=== PATIENT | female | born 1955 | race Hispanic/Latino ===

== ENCOUNTER 2021-02-14 14:28 | Outpatient (CLI) | payer OTHER, SELFPAY ==
--- NOTE | 2021-02-14 14:32 | ECG_ITS ---
Measurements Intervals [place] Rate: 69 P: 52 IL: 117 QRS: 81 QRSD: 82 T: 70 QT: 369 QTc: 396 Interpretive Statements SINUS RHYTHM WITH SHORT [place] INTERVAL DELAYED PRECORDIAL R/S TRANSITION BORDERLINE ECG Electronically Signed On 02-14-2021 15:27:43 REPRODUCTION ORDER PROCESSOR by Demar Gillis D.O.
== END 2021-02-14 14:29 | disposition home or self-care (01) ==
LOC: CHSCARD 14:32
PROVIDERS: PCP Nurse Practitioner; Visit Provider Internal Medicine Cardiovascular Disease
DX: I20.1 Angina pectoris with documented spasm (principal)
CPT/HCPCS: 93005

== ENCOUNTER 2024-10-23 13:40 | Outpatient (CLI) | payer OTHER, SELFPAY ==
--- OUTSIDE RECORDS SUMMARY | 2024-10-23 13:43 | XMS_ITS | Encounter Summary ---
Author Organization [facility] Address [address] [place] [address] Care Team Providers Care Insole And Outsole Splitter Name Role Phone Clive Stubbs MD Primary Care Provider [phone] Niall Garibay MD Unavailable Unavailab Kadeem Rogers MD Unavailable [phone] [facility] Primary Care Provider [phone] Encounter Details Date Type Department Care Team (Late st Contact Info) Description 12/16/2015 [facility] [address] [place] [address] Niall Garibay MD Social History Tobacco Use Types Packs/Day Years Used Date Smoking Tobacco: Former Alcohol Use Standard Drinks/Week Comments Yes 0 (1 standard drink = 0.6 oz pur e alcohol) Comments Unknown Sex and Gender Information Value Date Recorded Sex Assigned at Not on file Legal Sex Female 7:24 PM CDT Gender Identity Not on file Sexual Orientation Not on file documented as of this encounter Plan of Treatment Not on file documented as of this encounter Visit Diagnoses Not on filedocumented in this encounter Care Teams Insole And Outsole Splitter Relationship Specialty Start Date End Date Clive Stubbs MD [address] [place] [address] PCP - General INTERNAL MEDICINE 11/01/15 02/15/21 Chelo Suarez FNP-BC [address] [place] [address] PCP - General NURSE PRACTITIONER 02/16/21 Niall Garibay MD [address] [place] [address] CARDIOVASCULAR DISEASE 11/01/15 9 Kadeem Vazquez MD [address] [place] [address] [place] [employer] Servicer Apprentice CARDIOVASCULAR DISEASE 04/15/18 documented as of this encounter
--- OUTSIDE RECORDS SUMMARY | 2024-10-23 13:43 | XMS_ITS | Encounter Summary ---
Author Organization [facility] Address [address] [place] [address] Care Team Providers Care Natural Gas Plant Technician Name Role Phone Clive Stubbs MD Primary Care Provider [phone] Kademe Vazquez MD Unavailable [phone] [facility] Primary Care Provider [phone] Encounter Details Date Type Department Care Team (Late st Contact Info) Description 06/05/2018 Abstract [facility] [address] [place] [id number] Abstract, Doc [facility] Social History Tobacco Use Types Packs/Day Years Used Date Smoking Tobacco: Former Smokeless Tobacco: Never Alcohol Use Standard Drinks/Week Comments Yes 0 [...] on filedocumented in this encounter Care Teams Natural Gas Plant Technician Relationship Specialty Start Date End Date Clive Stubbs MD [address] [place] [address] PCP - General INTERNAL MEDICINE 11/01/15 02/15/21 Chelo Suarez FNP-BC [address] [place] [address] PCP - General NURSE PRACTITIONER 02/16/21 Kadeem Vazquez MD [address] [place] [address] [place] Licensed Practical CARDIOVASCULAR DISEASE 04/15/18 documented as of this encounter
--- OUTSIDE RECORDS SUMMARY | 2024-10-23 13:43 | XMS_ITS | Clinical Summary ---
Author Organization [facility] Address [address] [place] [address] Care Team Providers Care Formal Waiter/Waitress Name Role Phone Kadeem Vazquez MD Unavailable [phone] Chelo Suarez [facility] Primary Care Provider [phone] Allergies No known active allergies Medications * This document contains information received from the source organization and may not represent a complete record from that organization. aspirin 81 MG tablet Take 1 tablet by mouth daily. 1 Active busPIRone 10 MG tablet Take 1 tablet by mouth 2 (two) times daily. 4 Active isosorbide mononitrate ER 30 MG 24 hr tablet Take 1 tablet by mouth daily. 2 Active nitroGLYCERIN 0.4 MG SL tablet nitroglycerin tablet, sublingual 0.4 mg; take 1 tablet under tongue, for chest pain as directed; 25; 0; -Sep-2012; Active; Call PCP for refills 3 Active clopidogrel 75 MG tablet Take 75 mg by mouth daily. Active atorvastatin 40 MG tablet Take 1 tablet (40 mg total) by mouth daily. 90 tablet 3 6 Active sertraline 50 MG tablet 9 Active Active Problems Problem Noted Date Diagnosed Date CAD (coronary artery disease) Overview (01/11/2016): Mild nonobstructive coronary artery disease involving the LAD, currently chest pain free. Hypertension Hyperlipidemia Overview (01/11/2016): Hyperlipidemia, unknown status. Vasospasm Overview (01/11/2016): History of coronary vasospasms. Family History Medical History Relation Comments Coronary artery disease Other FAMILY H ISTORY UNKNOWN Relation Status Comments Other Social History Tobacco Use Types Packs/Day Years Used Date Smoking Tobacco: Former Smokeless Tobacco: Never Alcohol Use Standard Drinks/Week Comments Yes 0 (1 standard drink = 0.6 oz pur e alcohol) Comments Unknown Sex and Gender Information Value Date Recorded Sex Assigned at Not on file Legal Sex Female 7:24 PM CDT Gender Identity Not on file Sexual Orientation Not on file Last Filed Vital Signs Vital Sign Reading Time Taken Comments Blood Pressure 118/68 06/07/2018 10:37 AM CDT Pulse 76 06/07/2018 10:37 AM CDT Temperature - - Respiratory Rate 18 06/07/2018 10:37 AM CDT Oxygen Saturation 98% 06/07/2018 10:37 AM CDT Inhaled Oxygen Concentration - - Weight 59 kg (130 lb) 06/07/2018 10:37 AM CDT Height 157.5 cm (5' 2) 06/07/2018 10:37 AM CDT Body Mass Index 23.78 06/07/2018 10:37 AM CDT Plan of Treatment Health Maintenance Due Date Last Done Comments ASCVD Statin 1955 Colorectal Cancer Screening Colonoscopy (10 Years) 1955 Hepatitis C 05/29/1973 DTaP, Tdap and Td Vaccines ( 1 - Tdap) 05/29/1974 Pneumococcal Vaccine: 50+ Ye ars (1 of 2 - PCV) 05/29/1974 Mammogram Screening 1995 Zoster Vaccines (1 of 2) 05/29/2005 ASCVD LDL 01/07/2014 01/07/2013 RSV Immunization or 60+ Years (1 - Risk 60-74 years 1-dose series) 2015 Dexa Scan (General) 05/29/2020 COVID-19 Vaccine ( - 2023-2 5 season) 2023 Meningococcal B Vaccine Aged Out No l onger eligible based on patient's age to complete this topic Meningococcal Vaccine Aged Out No tonya maegan eligible based on patient's age to complete this topic RSV Immunizations Under 20 Months Aged Out No longer eligible based on patient's age to complete this topic Procedures Procedure Name Priority Date/Time Associated Diagnosis Comments LIPID PANEL Routine 01/07/2013 12:00 AM CDT from Last 3 Months or Most Recently Relevant to Health Maintenance Results * LIPID PANEL (01/07/2013 12:00 AM CDT) TRIGLYCERIDES 65 0 - 150 mg/dl MEDINFORMATIX TO EPIC CONVERSION CHOLESTEROL 148 0 - 200 mg/dl MEDINFORMATIX TO EPIC CONVERSION HDL 76 40 - 59 mg/dl MEDINFORMATIX TO EPIC CONVERSION LDL CONVERSION 59 0 - 100 mg/dl MEDINFORMATIX TO EPIC CONVERSION CHOL/HDL RATIO 1.9 <4.0 (Calc) MEDINFORMATIX TO EPIC CONVERSION LDL/HDL 0.8 <3.0 Calc MEDINFORMA TIX TO EPIC CONVERSION 01/07/2013 01/07/2013 Narrative MEDINFORMATIX TO EPIC CONVERSION - 04/16/2013 11:12 AM HAND II CUTTER Reviewed by TABITHA Apr 16 2013 11:13:02:000AM us Generic Conversion Md [facility] Final R esult MEDINFORMATIX TO EPIC CONVERSION from Last 3 Months or Most Recently Relevant to Health Maintenance Insurance Care Teams Formal Waiter/Waitress Relationship Specialty Start Date End Date Chelo Suarez [facility] [address] [place] [address] PCP - General NURSE PRACTITIONER 02/16/21 Kadeem Vazquez MD [address] [place] [address] [place] Telex Operator CARDIOVASCULAR DISEASE 04/15/18
[2024-10-23 14:59] LABS: Alanine Aminotransferase 26 U/L (6-35); Albumin Level 4.9 g/dL (3.5-5.1); Alkaline Phosphatase 75 U/L (38-126); Anion Gap 5 mmol/L (4-12); Aspartate Amino Transferase 40 U/L (14-36); Bilirubin,Total 0.5 mg/dL (0.2-1.3); Blood Urea Nitrogen 15 mg/dL (7-17); Calcium 10.1 mg/dL (8.4-10.2); Carbon Dioxide 32 mmol/L (22-30); Chloride 104 mmol/L (98-107); Cholesterol 187 mg/dL (0-200); Estimated Glomerular Filt Rate > 60; Glucose 85 mg/dL (65-110); HDL Direct 87 mg/dL; Osmolality Calculated 291 mOsm/kg (285-295); Potassium 4.3 mmol/L (3.4-5.0); Sodium 141 mmol/L (137-145); Total Protein 7.1 g/dL (6.3-8.2); Triglycerides 195 mg/dL (<150)
== END 2024-10-23 13:41 | disposition home or self-care (01) ==
PROVIDERS: PCP Physician Assistant; Visit Provider Internal Medicine Cardiovascular Disease
DX: E78.5 Hyperlipidemia, unspecified (principal)
CPT/HCPCS: 36415; 80053; 80061